=== PATIENT | female | born 1995 | race Caucasian/White ===

== ENCOUNTER 2022-01-25 14:39 | Emergency (ER) | payer OTHER, SELFPAY ==
[2022-01-25 14:53] VITALS: BP 168/101; PULSE 94; RESP 28; O2SAT 100; BMI 24.7
--- NOTE | 2022-01-25 15:11 | ED_ITS ---
HPI - Nausea/Vomiting/Diarrhea <NURYS Banks - Last Filed: 01/25/22 16:44> General Chief complaint: Nausea/Vomiting/Diarrhea Stated complaint: dehydrated, throwing up, not eaten in 24 hrs. Time Seen by Provider: 01/25/22 15:11 Source: patient Mode of arrival: Ambulatory History of Present Illness HPI Narrative: 27-year-old female without any significant medical history presents to the emergency department with nausea and vomiting since last night. Patient states that she drinks 5 shots on an empty stomach, proceeded to drink alcohol last night and has a terrible hangover today. She says that she has been throwing up everything over the last 24 hours and has not been able to keep anything down. She states that she feels ?shaky ?, denies dizziness, weakness, shortness of breath, or chest pain. She states that she is anxious because she feels so poorly and did not know if the shaking was dangerous. She denies any possibility of . Denies any abdominal pain, back pain, blood in her stool or her emesis. Related Data Previous Rx's Medication Instructions Recorded omeprazole magnesium 10 mg oral 10 mg PO DAILY #30 ea 01/25/22 suspension,delayed release (Prilosec) ondansetron 4 mg disintegrating 4 mg PO Q8HR PRN 5 Days tab 01/25/22 tablet ondansetron HCl 4 mg tablet 4 mg PO Q8HR PRN #10 tab 01/25/22 Allergies Allergy/AdvReac Type Severity Reaction Status Date / Time No Known Drug Allergies Allergy Verified 01/25/22 15:05 Review of Systems <NURYS Banks - Last Filed: 01/25/22 16:44> Review of Systems Narrative: General: denies fever, chills, malaise, sweats, fatigue Head/Neck: denies headache, neck pain, dizziness Eyes: denies visual changes, eye pain Cardio: denies chest pain, palpitations, edema Respiratory: denies dyspnea, cough, orthopnea GI: denies abdominal pain, endorses 24 hours of nausea and vomiting : denies dysuria, hematuria, urinary retention, frequency or incontinence MSK: denies joint pain, muscle weakness Skin: denies rash, itching, skin lesions or other Neuro: denies numbness, tingling Patient History <NURYS Banks - Last Filed: 01/25/22 16:44> Social History Smoking Status: Former smoker Smoking Status: Former smoker alcohol intake frequency: a few times a week Substance Use Type: marijuana Exam <NURYS Banks - Last Filed: 01/25/22 16:44> Narrative Exam Narrative: Independently reviewed vitals signs and nursing notes. General: cooperative, comfortable, in no acute distress, well developed and well groomed Head: atraumatic, symmetrical facial expressions Neck: supple, atraumatic, without lymphadenopathy. Eyes: pupils equal round and reactive, EOMI, conjunctiva normal Nose: nares patent, no rhinorrhea Mouth/Throat: moist mucus membranes Cardiovascular: regular rate and rhythm, no peripheral edema, warm extremities Respiratory: normal effort, able to speak in complete sentences, no audible wheezing, stridor, or rales. No retractions or tachypnea. GI: abdomen soft, nontender to palpation, nondistended, no masses, no exquisite tenderness with exam, without guarding or rebound. MSK: moves all extremities, ambulatory w/steady gait, neurovascularly intact, no weakness Skin: brisk capillary refill, no rash, no erythema, mild pallor Neuro: normal speech and cognition, A&O x3, normal tone Psych: mental status is grossly normal, congruent mood, normal affect, pleasant and cooperative Initial Vital Signs Initial Vital Signs: Vital Signs Pulse Rate 94 H 01/25/22 14:53 Respiratory Rate 28 H 01/25/22 14:53 Blood Pressure 168/101 H 01/25/22 14:53 Pulse Oximetry 100 01/25/22 14:53 <Mathieu Prather DO - Last Filed: 01/26/22 09:25> Initial Vital Signs Initial Vital Signs: Vital Signs Pulse Rate 94 H 01/25/22 14:53 Respiratory Rate 28 H 01/25/22 14:53 Blood Pressure 168/101 H 01/25/22 14:53 Pulse Oximetry 100 01/25/22 14:53 Course <NURYS Banks - Last Filed: 01/25/22 16:44> Orders Ordered: Discontinued Medications Sodium Chloride (Normal Saline 0.9%) 1,000 mls @ 1,000 mls/hr IV BOLUS ONE Stop: 01/25/22 16:12 Last Infusion: 01/25/22 16:47 Dose: 0 mls/hr Documented by: Admin: 01/25/22 15:41 Dose: 1,000 mls/hr Documented by: ADALID Ondansetron HCl (Ondansetron 4 Mg Odt) 4 mg SL NOW ONE Stop: 01/25/22 15:12 Last Admin: 01/25/22 15:49 Dose: Not Given Documented by: ADALID Ondansetron HCl (Ondansetron 4 Mg/2 Ml Inj) 4 mg IV NOW ONE Stop: 01/25/22 15:26 Last Admin: 01/25/22 15:41 Dose: 4 mg Documented by: ADALID Pantoprazole Sodium (Pantoprazole 40 Mg Vial) 20 mg IV NOW ONE Stop: 01/25/22 16:33 Last Admin: 01/25/22 16:52 Dose: Not Given Documented by: ADALID Promethazine HCl (Promethazine 25 Mg Tablet) 12.5 mg PO NOW ONE Stop: 01/25/22 16:21 Last Admin: 01/25/22 16:52 Dose: Not Given Documented by: ADALID Vital Signs Vital signs: Vital Signs - 8 hr 01/25/22 14:53 Pulse Rate 94 H Respiratory Rate 28 H Blood Pressure 168/101 H Pulse Oximetry 100 <Mathieu Prather DO - Last Filed: 01/26/22 09:25> Orders Ordered: Discontinued Medications Sodium Chloride (Normal Saline 0.9%) 1,000 mls @ 1,000 mls/hr IV BOLUS ONE Stop: 01/25/22 16:12 Last Infusion: 01/25/22 16:47 Dose: 0 mls/hr Documented by: Admin: 01/25/22 15:41 Dose: 1,000 mls/hr Documented by: ADALID Ondansetron HCl (Ondansetron 4 Mg Odt) 4 mg SL NOW ONE Stop: 01/25/22 15:12 Last Admin: 01/25/22 15:49 Dose: Not Given Documented by: ADALID Ondansetron HCl (Ondansetron 4 Mg/2 Ml Inj) 4 mg IV NOW ONE Stop: 01/25/22 15:26 Last Admin: 01/25/22 15:41 Dose: 4 mg Documented by: ADALID Pantoprazole Sodium (Pantoprazole 40 Mg Vial) 20 mg IV NOW ONE Stop: 01/25/22 16:33 Last Admin: 01/25/22 16:52 Dose: Not Given Documented by: ADALID Promethazine HCl (Promethazine 25 Mg Tablet) 12.5 mg PO NOW ONE Stop: 01/25/22 16:21 Last Admin: 01/25/22 16:52 Dose: Not Given Documented by: ADALID Vital Signs Vital signs: Vital Signs - 8 hr 01/25/22 14:53 Pulse Rate 94 H Respiratory Rate 28 H Blood Pressure 168/101 H Pulse Oximetry 100 MDM - Nausea/Vomiting/Diarrhea <NURYS Banks - Last Filed: 01/25/22 16:44> Lab Data Result diagrams: 01/25/22 15:17 01/25/22 15:17 Labs: Lab Results 01/25/22 01/25/22 01/25/22 Range/Units 15:17 15:17 15:17 WBC 14.0 H (4.5-11.0) X10^3/uL RBC 4.95 (4.0-5.2) X10^6/uL Hgb 15.4 (12.0-16.0) g/dL Hct 44.1 (36-46) % MCV 89.1 (80-100) fL MCH 31.2 (26-34) PG MCHC 35.1 (30-36) % RDW 13.5 (11.6-14.8) % Plt Count 368 (150-400) X10^3/uL Neut % (Auto) 79.2 H (50-75) % Lymph % (Auto) 15.2 L (25-40) % [place] % (Auto) 5.3 (3-14) % Eos % (Auto) 0.1 L (2-4) % Baso % (Auto) 0.2 (0-2) % Neut # (Auto) 01066 H (3870-2178) /uL Lymph # (Auto) 2100 (6176-9991) /uL [place] # (Auto) 700 (0-900) /uL Eos # (Auto) 0 (0-450) /uL Baso # (Auto) 0 (0-100) /uL Sodium 141 (137-145) mmol/L Potassium 3.3 L (3.4-5.1) mmol/L Chloride 103 (98-107) mmol/L Carbon Dioxide 21 L (22-32) mmol/L BUN 8 (7-17) mg/dL Creatinine 0.69 (0.52-1.04) mg/dL Estimated GFR > 60.0 (>60) mL/min BUN/Creatinine Ratio 11.6 (6-22) Glucose 122 H (70-100) mg/dL Calcium 10.1 (8.4-10.2) mg/dL Total Bilirubin 1.3 (0.2-1.3) mg/dL AST 43 H (14-36) IU/L ALT 21 (<35) IU/L Alkaline Phosphatase 73 (38-126) U/L Total Protein 9.0 H (6.3-8.2) g/dL Albumin 5.4 H (3.5-5.0) g/dL Globulin 3.6 (1.7-4.1) g/dL Albumin/Globulin Ratio 1.5 (1.0-2.8) Lipase 81 (23-300) U/L HCG, Quant < 2.4 mIU/mL MDM Narrative Medical decision making narrative: 27-year-old female presents to the emergency department with nausea and vomiting since yesterday after drinking alcohol on an empty stomach. Patient states that she had at least 5 shots and then proceeded to drink the rest of the evening. She has been vomiting since yesterday, states unable to keep anything down. She came to the emergency department for tremors and feeling weak. She takes Adderall and Seroquel at baseline. Lab work shows a mild leukocytosis likely related to vomiting and dehydration of 14, has a left shift, potassium is low at 3.3, AST mildly elevated at 43 without prior to compare to, lipase is 81. Cara ent was given 1 L of normal saline, Zofran IV, tolerated this well. She was able to stop vomiting, feels much better. Encouraged to avoid alcohol, eat healthy fresh foods and try to take in food with potassium in them over the next few days. Recommend close follow-up with primary care provider, return to the emergency department for any new or worsening symptoms. HCG quant was negative . Patient is given a prescription of Zofran, she was given p.o. friend again in addition to her Zofran in the emergency department, tolerated ice chips afterward without vomiting. Patient is appropriate and amenable to discharge home. Vital signs are stable on repeat examination is unremarkable. Patient has been informed of results. Patient has been given strict return to ER precautions for any new or worsening symptoms. Patient understands to follow up closely with outpatient providers as instructed. Patient understands plan and agrees to discharge home. All questions and concerns answered at this time. <Mathieu Prather DO - Last Filed: 01/26/22 09:25> Lab Data Labs: Lab Results 01/25/22 01/25/22 01/25/22 Range/Units 15:17 15:17 15:17 WBC 14.0 H (4.5-11.0) X10^3/uL RBC 4.95 (4.0-5.2) X10^6/uL Hgb 15.4 (12.0-16.0) g/dL Hct 44.1 (36-46) % MCV 89.1 (80-100) fL MCH 31.2 (26-34) PG MCHC 35.1 (30-36) % RDW 13.5 (11.6-14.8) % Plt Count 368 (150-400) X10^3/uL Neut % (Auto) 79.2 H (50-75) % Lymph % (Auto) 15.2 L (25-40) % [place] % (Auto) 5.3 (3-14) % Eos % (Auto) 0.1 L (2-4) % Baso % (Auto) 0.2 (0-2) % Neut # (Auto) 59142 H (2775-2479) /uL Lymph # (Auto) 2100 (8886-8486) /uL [place] # (Auto) 700 (0-900) /uL Eos # (Auto) 0 (0-450) /uL Baso # (Auto) 0 (0-100) /uL Sodium 141 (137-145) mmol/L Potassium 3.3 L (3.4-5.1) mmol/L Chloride 103 (98-107) mmol/L Carbon Dioxide 21 L (22-32) mmol/L BUN 8 (7-17) mg/dL Creatinine 0.69 (0.52-1.04) mg/dL Estimated GFR > 60.0 (>60) mL/min BUN/Creatinine Ratio 11.6 (6-22) Glucose 122 H (70-100) mg/dL Calcium 10.1 (8.4-10.2) mg/dL Total Bilirubin 1.3 (0.2-1.3) mg/dL AST 43 H (14-36) IU/L ALT 21 (<35) IU/L Alkaline Phosphatase 73 (38-126) U/L Total Protein 9.0 H (6.3-8.2) g/dL Albumin 5.4 H (3.5-5.0) g/dL Globulin 3.6 (1.7-4.1) g/dL Albumin/Globulin Ratio 1.5 (1.0-2.8) Lipase 81 (23-300) U/L HCG, Quant < 2.4 mIU/mL Discharge Plan Departure Patient Disposition: Home Clinical Impression: Hypokalemia due to excessive gastrointestinal loss of potassium, Acute dehydration Hangover Qualifiers: Complication of substance-induced condition: uncomplicated Qualified Code(s): F10.120 - Alcohol abuse with intoxication, uncomplicated Vomiting Qualifiers: Vomiting type: unspecified Nausea presence: with nausea Qualified Code(s): R11.2 - Nausea with vomiting, unspecified Instructions: DI for Vomiting -- Adult Activity Restrictions/Additional Instructions: *You have been diagnosed with nausea and vomiting related to your. Please do not drink the much on an empty stomach again. Do not take any ibuprofen for the next few days, you likely have gastritis which is inflammation of your stomach lining. Please take Prilosec for the next few days in the morning on an empty stomach. Try to eat a bland diet, nothing acidic or spicy, limit your caffeine and coffee intake, if it is painful probably should avoid it. Can take Tylenol for pain, use Zofran for any vomiting, have sent your prescriptions to [facility]. Please follow-up with her primary care provider if you have any other concerns. Your lab work showed that your potassium level was slightly low today, no need to take any potassium pills since is probably low from your frequent vomiting. Please try to eat fresh healthy foods over the next few days to restore your potassium level. Thank you for trusting us with your care, Maalox or Tums is okay to take for discomfort in your epigastric region. *What to do: *Please continue to take your regular medications as directed. [x ] New medication prescriptions sent to your pharmacy: [[facility] ] [ ] New medication written as a paper prescription [ ] No new medications given *Please follow up with your primary care provider in 2-3 days, call for an appointment. Let them know you were seen in the Emergency Department and that we asked that you be seen for follow-up. We will electronically transmit a record of today's note if your PCP is in our system *If you do not have a primary care provider please contact [phone] to establish care with one of the [facility] primary care providers. *Return to Emergency Department if you should have any new, worsening or concerning symptoms, such as [fever greater than 101F, chills, worsening pain, persistent vomiting or other bothersome symptoms] Prescriptions: New ondansetron 4 mg tablet,disintegrating 4 mg PO Q8HR PRN (Reason: nausea and vomiting) 5 Days 0RF ondansetron HCl 4 mg tablet 4 mg PO Q8HR PRN (Reason: nausea and vomiting) Qty: 10 0RF Prilosec 10 mg susp,delayed release for recon 10 mg PO DAILY Qty: 30 0RF Referrals: Cristino Portillo MD [Primary Care Provider] - <Mathieu Prather DO - Last Filed: 01/26/22 09:25> [facility]: I was immediately available in the department for consultation. This documentation has been reviewed and I agree with assessment and plan. Supervised by Mathieu Prather DO
[2022-01-25 15:28] LABS: Add Manual Diff / Slide Review NO; Basophils Absolute Auto 0 /uL (0-100); Basophils Percent Auto 0.2 % (0-2); Eosinophils Absolute Auto 0 /uL (0-450); Eosinophils Percent Auto 0.1 % (2-4); Hematocrit 44.1 % (36-46); Hemoglobin 15.4 g/dL (12.0-16.0); Lymphocytes Absolute Auto 2100 /uL (1100-4500); Lymphocytes Percent Auto 15.2 % (25-40); Mean Corpuscular HGB Conc 35.1 % (30-36); Mean Corpuscular Hemoglobin 31.2 PG (26-34); Mean Corpuscular Volume 89.1 fL (80-100); Monocytes Absolute Auto 700 /uL (0-900); Monocytes Percent Auto 5.3 % (3-14); Neutrophils Absolute Auto 11100 /uL (1500-7000); Neutrophils Percent Auto 79.2 % (50-75); Platelet Count 368 X10^3/uL (150-400); Red Blood Cell Count 4.95 X10^6/uL (4.0-5.2); Red Cell Distribution Width 13.5 % (11.6-14.8)
[2022-01-25 15:38] LABS: Alanine Aminotransferase 21 IU/L (<35); Albumin 5.4 g/dL (3.5-5.0); Albumin Globulin Ratio 1.5 (1.0-2.8); Alkaline Phosphatase 73 U/L (38-126); Aspartate Aminotransferase 43 IU/L (14-36); BUN Creatinine Ratio 11.6 (6-22); Bilirubin Total 1.3 mg/dL (0.2-1.3); Blood Urea Nitrogen 8 mg/dL (7-17); Calcium 10.1 mg/dL (8.4-10.2); Carbon Dioxide 21 mmol/L (22-32); Chloride 103 mmol/L (98-107); Estimated Glomerular Filt Rate > 60.0 mL/min (>60); Globulin 3.6 g/dL (1.7-4.1); Glucose 122 mg/dL (70-100); HEMOLYSIS < 15 (0-50); Lipase 81 U/L (23-300); Potassium 3.3 mmol/L (3.4-5.1); Sodium 141 mmol/L (137-145)
[2022-01-25] MEDS: ONDANSETRON 4 MG/2 ML INJ IV (15:41)
[2022-01-25] MEDS: SODIUM CHLORIDE 0.9% 1,000 ML 1000 ML IV (15:41)
[2022-01-25 16:57] LABS: HCG Quantitative /Beta subunit < 2.4 mIU/mL
[2022-01-25 17:00] VITALS: BP 118/75; PULSE 85; RESP 16; O2SAT 99
== END 2022-01-25 16:52 | disposition home or self-care (01) ==
PROVIDERS: Emergency Provider Nurse Practitioner Critical Care Medicine; PCP Family Medicine
DX: F10.129 Alcohol abuse with intoxication, unspecified (principal); R11.2 Nausea with vomiting, unspecified; E86.0 Dehydration; E87.6 Hypokalemia
CPT/HCPCS: 36415; 80053; 83690; 84702; 85025; 96361; 96374; 99284; J2405

== ENCOUNTER → 2023-09-17 15:52 | Outpatient (CLI) | payer OTHER, SELFPAY ==
[2023-09-17 16:32] LABS: Hematocrit 41.1 % (36-46); Mean Corpuscular Hemoglobin 31.4 PG (26-34); Mean Corpuscular Volume 92.3 fL (80-100); Platelet Count 255 X10^3/uL (150-400); Red Blood Cell Count 4.45 X10^6/uL (4.0-5.2); Red Cell Distribution Width 13.2 % (11.6-14.8); White Blood Cell Count 6.8 X10^3/uL (4.5-11.0)
[2023-09-17 16:49] LABS: Alanine Aminotransferase 22 IU/L (<35); Albumin 4.5 g/dL (3.5-5.0); Albumin Globulin Ratio 1.6 (1.0-2.8); Alkaline Phosphatase 43 U/L (38-126); Aspartate Aminotransferase 28 IU/L (14-36); BUN Creatinine Ratio 24.6 (6-22); Bilirubin Total 1.1 mg/dL (0.2-1.3); Blood Urea Nitrogen 14 mg/dL (7-17); Calcium 9.5 mg/dL (8.4-10.2); Carbon Dioxide 26 mmol/L (22-32); Chloride 101 mmol/L (98-107); Estimated Glomerular Filt Rate > 60 mL/min (>60); Globulin 2.9 g/dL (1.7-4.1); Glucose 147 mg/dL (70-100); HEMOLYSIS < 15 (0-50); Lactate Dehydrogenase 132 U/L (120-246); Sodium 134 mmol/L (137-145); Total Protein 7.4 g/dL (6.3-8.2)
== END ==
PROVIDERS: PCP Family Medicine; Referring Provider Family Medicine; Visit Provider Family Medicine
DX: R59.1 Generalized enlarged lymph nodes (principal); R61 Generalized hyperhidrosis
CPT/HCPCS: 36415; 80053; 83615; 85027

== ENCOUNTER → 2023-10-29 12:28 | Outpatient (CLI) | payer OTHER, SELFPAY ==
--- NOTE | 2023-10-29 12:31 | DI.US.S_ITS ---
PROCEDURE: US SOFT TISSUE HEAD AND NECK INDICATIONS: right side, level of C4 1cmx1.5cm mass TECHNIQUE: Real-time scanning was performed of the neck region of interest, with image documentation. COMPARISON: None. FINDINGS: There are multiple normal sized cervical lymph nodes visualized in the region palpated by the patient. These nodes demonstrate normal size and normal fatty dilan. No cervical adenopathy appreciated. IMPRESSION: No suspicious mass lesion or cervical adenopathy where palpated by the patient. Dictated by: Adela Muller M.D. on 10/29/2023 at 13:53 Approved by: Adela Muller M.D. on 10/29/2023 at 13:54
== END ==
LOC: US 12:30
PROVIDERS: PCP Family Medicine; Referring Provider Family Medicine; Visit Provider Family Medicine
DX: R59.1 Generalized enlarged lymph nodes (principal)
CPT/HCPCS: 76536

== ENCOUNTER → 2024-07-04 11:04 | Outpatient (CLI) | payer OTHER, SELFPAY ==
--- NOTE | 2024-07-04 11:06 | DI.US.S_ITS ---
PROCEDURE: US SOFT TISSUE HEAD AND NECK INDICATIONS: RT POSTERIOR CERVICAL ENLARGED LYMPH NODE x6m TECHNIQUE: Real-time scanning was performed of the neck region of interest, with image documentation. COMPARISON: [facility], , US SOFT TISSUE HEAD AND NECK, 10/29/2023, 12:42. FINDINGS: In the right posterior cervical lymph node chain, there is a 1.0 x 0.3 x 0.8 cm lymph node with preserved fatty hilum. No evidence of extranodal extension. IMPRESSION: Normal lymph node with benign morphology in the right posterior cervical lymph node chain. Dictated by: Lincoln Solomon M.D. on 07/04/2024 at 15:17 Approved by: Lincoln Solomon M.D. on 07/04/2024 at 15:19
== END ==
PROVIDERS: PCP Family Medicine; Referring Provider Nurse Practitioner Family; Visit Provider Nurse Practitioner Family
DX: R59.0 Localized enlarged lymph nodes (principal)
CPT/HCPCS: 76536

== ENCOUNTER → 2025-01-01 09:35 | Outpatient (CLI) | payer OTHER, SELFPAY ==
[2025-01-02 13:09] LABS: Candida species Negative (Negative); Gardnerella vaginalis Negative (Negative); Trichomoas vaginalis Negative (Negative)
== END ==
PROVIDERS: PCP Family Medicine; Visit Provider Student in an Organized Health Care Education/Training Program
DX: N89.8 Other specified noninflammatory disorders of vagina (principal)
CPT/HCPCS: 87480; 87510; 87660

== ENCOUNTER → 2025-01-16 10:20 | Outpatient (CLI) | payer OTHER, SELFPAY ==
[2025-01-16 14:37] LABS: Urine Chlamydia NOT DETECTED; Urine N gonorrhoeae NOT DETECTED
== END ==
PROVIDERS: PCP Family Medicine; Visit Provider Student in an Organized Health Care Education/Training Program
DX: Z11.3 Encounter for screening for infections with a predominantly sexual mode of transmission (principal)
CPT/HCPCS: 87491; 87591

== ENCOUNTER → 2025-01-30 13:44 | Outpatient (CLI) | payer OTHER, SELFPAY ==
[2025-01-30 14:13] LABS: Add Manual Diff / Slide Review NO; Basophils Absolute Auto 0 /uL (0-100); Basophils Percent Auto 0.3 % (0-2); Eosinophils Absolute Auto 200 /uL (0-450); Eosinophils Percent Auto 2.1 % (2-4); Hematocrit 40.2 % (36-46); Hemoglobin 13.8 g/dL (12.0-16.0); Lymphocytes Absolute Auto 2500 /uL (1100-4500); Lymphocytes Percent Auto 20.5 % (25-40); Mean Corpuscular HGB Conc 34.2 % (30-36); Mean Corpuscular Hemoglobin 31.2 PG (26-34); Mean Corpuscular Volume 91.1 fL (80-100); Monocytes Absolute Auto 600 /uL (0-900); Monocytes Percent Auto 4.8 % (3-14); Neutrophils Absolute Auto 8700 /uL (1500-7000); Neutrophils Percent Auto 72.3 % (50-75); Platelet Count 313 X10^3/uL (150-400); Red Blood Cell Count 4.41 X10^6/uL (4.0-5.2); Red Cell Distribution Width 13.8 % (11.6-14.8)
[2025-01-30 16:04] LABS: HIV 1 & 2 Ab/Ag 4th Gen Combo NEGATIVE (NEGATIVE); Hep C Virus Ab w/Reflex Quant NEGATIVE s/c (NEGATIVE); Hepatitis B Surface Antigen NEGATIVE s/c (NEGATIVE); Rubella Antibody IgG 4.5 IU/mL (>15)
[2025-02-01 05:41] LABS: RPR Screen Non Reactive (Non Reactive)
[2025-02-01 09:39] LABS: Varicella IgG Antibody Non Reactive (Non Reactive)
== END ==
PROVIDERS: PCP Family Medicine; Referring Provider Student in an Organized Health Care Education/Training Program; Visit Provider Student in an Organized Health Care Education/Training Program
DX: Z34.00 Encounter for supervision of normal first pregnancy, unspecified trimester (principal)
CPT/HCPCS: 36415; 80055; 86787; 86803; 86850; 86900; 86901; 87077; 87086; 87186; 87389

== ENCOUNTER 2025-02-05 22:27 | Emergency (ER) | payer OTHER, SELFPAY ==
[2025-02-05 22:32] VITALS: BP 123/81; PULSE 94; RESP 16; TEMP 36.6; O2SAT 98; BMI 26.5
[2025-02-05] MEDS: SODIUM CHLORIDE 0.9% 1,000 ML 1000 ML IV (23:00)
--- NOTE | 2025-02-05 23:50 | ED_ITS ---
HPI - Headache General Chief Complaint: Headache Stated Complaint: 11 weeks gestation migraine N/V Time Seen by Provider: 02/05/25 23:50 Mode of arrival: Ambulatory History of Present Illness HPI Narrative: Patient is a 30-year-old female history of migraines, currently 11 weeks , presents to the emergency department from home for evaluation of headache. She states that she does have a history of migraines, states this is similar to her history of, however she states that she did not take any medications that she normally does for this given the fact that she is and she was unsure of what is safe to take. She denies any trauma or falls. Denies any other symptoms such as visual disturbances chest pain shortness breath fever chills nausea vomiting abdominal pain or any other GI/ symptoms time. Patient denies any vaginal bleeding cramping. She states that she was traveling recently and felt extremely dehydrated and believes this was the trigger of her symptoms. Related Data Home Medications Medication Instructions Recorded Confirmed dextroamphetamine-amphetamine 10 10 mg PO DAILY 01/28/24 01/16/25 mg tablet (Adderall) zolpidem 5 mg tablet 10 mg PO BEDTIME PRN 11/10/24 01/16/25 magnesium glycinate 100 mg (as 200 mg PO DAILY 01/08/25 01/16/25 glycinate) tablet vitamin-ferrous sulfate tab PO 01/08/25 01/16/25 27 mg iron-folic acid 0.8 mg tablet Previous Rx's Medication Instructions Recorded ondansetron HCl 4 mg tablet 4 mg PO DAILY #30 tabs 01/10/25 Allergies Allergy/AdvReac Type Severity Reaction Status Date / Time No Known Drug Allergies Allergy Verified 01/16/25 09:29 Review of Systems Review of Systems Narrative: General: Denies fever, chills, weight loss HEENT: Positive headache, denies eye drainage, eye irritation, head trauma, sore throat, voice change Cardiovascular: Denies any chest pain, palpitations, tachycardia Respiratory: Denies any shortness of breath, cough, wheeze, stridor GI/: Denies any abdominal pain, nausea, vomiting, diarrhea, bright red blood per rectum, melanotic stools, urinary frequency, urinary retention, dysuria, hematuria MSK: Denies any joint pain, muscle pains, swelling Skin: Denies any rashes, lesions, discoloration Neuro: Denies any headache, lightheadedness, dizziness, fainting, weakness Psych: Denies SI/HI Patient History Medical History (Updated 02/06/25 @ 00:13 by Kamar Trejo DO) Gastritis Lymphadenopathy of head and neck Occipital headache Depression Surgical History (Updated 01/08/25 @ 12:07 by Tari Shepherd RN) [place] teeth extracted Family History (Updated 01/08/25 @ 12:12 by Tari Shepherd RN) Mother Precancerous skin lesion Insomnia ADHD Grandmother Stroke Colon cancer Uncle Metastatic melanoma Grandmother Alcoholism Mental health disorder Uncle Alcoholism ADHD Hyperlipidemia Sister Precancerous skin lesion Hyperlipidemia Brother Hypertension Social History marital status: number of children: 0 household members: spouse lives independently: Yes caregiver/support person: No housing: [facility] pets and animals: Yes (small dogs) education level: master's degree (healthcare administration) 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) current occupational exposures/hazards: No special jolynn needs: No travel history: recent ([place]) seatbelt use: always helmet use: Yes water heater temp set < 120 deg: Yes working smoke detector in home: Yes fire extinguisher in home: Yes carbon monox detector in home: Yes firearms in home: Yes firearms unloaded and locked: Yes do you feel safe at home: Yes Smoking Status: Never smoker second hand exposure: No alcohol intake: former (~3-5/week when not ) substance use type: marijuana (not planning to use while /) during the past year weight has: other (always has ~10-20 lb range fluctuation) well-balanced diet: rarely or never daily servings fruits/ve-1 caffeine: Yes (single cup coffee in AM) Type(s) of exercise: none Smoking Status: Never smoker alcohol intake frequency: a few times a week Exam Narrative Exam Narrative: General: Cooperative, well-developed, not in acute distress HEENT: Normocephalic, atraumatic, PERRLA, normal sclera, eyelids normal Neck: Active full range of motion, atraumatic Chest: Normal to inspection, negative crepitus, no overlying erythema ecchymosis Respiratory: Normal respiratory effort, not in acute respiratory distress, clear to auscultation bilaterally negative cough, wheeze, tachypnea, rhonchi, rales Cardiology: Regular rate rhythm negative gallop, murmur, rubs GI/: No tenderness to palpation, soft, non rigid, normal to inspection, exam deferred MSK: Full active range of motion in all 4 extremities, atraumatic, no tenderness to palpation of any bony prominences Skin: No rashes or lesions noted Neuro: NIH of 0, no focal deficits Alert awake oriented x3, moves all 4 extremities spontaneously, cranial nerves intact, able to answer all questions appropriately follows commands appropriately Psych: Cooperative, negative suicidal or homicidal ideations Initial Vital Signs Initial Vital Signs: Vital Signs Temperature 98 F 02/05/25 22:32 Pulse Rate 94 H 02/05/25 22:32 Respiratory Rate 16 02/05/25 22:32 Blood Pressure 123/81 02/05/25 22:32 Pulse Oximetry 98 02/05/25 22:32 Oxygen Delivery Method Room Air 02/05/25 22:32 Course Orders Ordered: Ondansetron HCl (Ondansetron 4 Mg/2 Ml Inj) 4 mg IV NOW PRN PRN Reason: Nausea And Vomiting Ondansetron HCl (Ondansetron 4 Mg Odt) 4 mg SL NOW PRN PRN Reason: Nausea And Vomiting Vital Signs Vital signs: Vital Signs - 8 hr 02/05/25 22:32 Temperature 98 F Pulse Rate 94 H Respiratory Rate 16 Blood Pressure 123/81 Pulse Oximetry 98 Oxygen Delivery Method Room Air MDM - Headache Differential Diagnosis Differential diagnosis: Likely migraine, tension headache and headache MDM Narrative Medical decision making narrative: 30-year-old female with a history of migraine currently 11 weeks presenting to the emergency department from home for evaluation of headache, she states that she was recently traveling felt dehydrated started having a headache typical of her normal migraines, she said she normally takes Advil for this but she did not because she is currently . Patient states that she is not h aving any other symptoms at such as visual disturbances chest pain shortness breath pelvic cramping vaginal bleeding or abnormal discharge. She states that she had complete resolution of her headache after administration of 1 L normal saline, she does not want any additional medications that were ordered such as Decadron Reglan and Benadryl. She states that she just wants to go home and sleep. She does not want any blood work at this time. Patient was given strict return precautions she verbalized understanding of this and agrees to being discharged home with outpatient follow up Discharge Plan Departure Patient Disposition: Home Clinical Impression: Headache Instructions: DI for Headache Activity Restrictions/Additional Instructions: You can take Tylenol for your headaches Please follow up with the primary care doctor and your OBGYN in outpatient setting Please read the discharge instructions sheet carefully and bring all papers to all doctor follow-up visits, as it may contain information that your doctor may want to see. Disease processes change and evolve, if your symptoms worsen or if you develop any new symptoms that are concerning to you please return for evaluation. Your evaluation today does not show any evidence of any life- threatening/serious illnesses requiring admission to the hospital or surgery. Please follow-up with your doctor for re-evaluation in approximately 1 day. Seek immediate medical attention for any worrisome symptoms. *If you do not have a primary care provider please contact the [facility] Resource line at [phone]. They will ask some questions about your medical history and help get you set up with a doctor in the community. Prescriptions: No Action ondansetron HCl 4 mg tablet 4 mg PO DAILY Qty: 30 2RF dextroamphetamine-amphetamine [Adderall] 10 mg tablet 10 mg PO DAILY zolpidem 5 mg tablet 10 mg PO BEDTIME PRN Patient Comments: [NO ORIGINAL SIG] vit-ferrous sulfat-FA 27 mg iron- 0.8 mg tablet PO magnesium glycinate 100 mg tablet 200 mg PO DAILY Referrals: Dipika Ruiz DO [Primary Care Provider] - Stand Alone Forms: Patient Portal/API/Survey
[2025-02-06 00:15] VITALS: BP 106/59; PULSE 79; RESP 19; O2SAT 98
[2025-02-06 00:44] LABS: Add Manual Diff / Slide Review NO; Basophils Absolute Auto 200 /uL (0-100); Basophils Percent Auto 1.9 % (0-2); Eosinophils Absolute Auto 300 /uL (0-450); Eosinophils Percent Auto 2.2 % (2-4); Hematocrit 38.9 % (36-46); Hemoglobin 13.4 g/dL (12.0-16.0); Lymphocytes Absolute Auto 2000 /uL (1100-4500); Lymphocytes Percent Auto 17.6 % (25-40); Mean Corpuscular HGB Conc 34.5 % (30-36); Mean Corpuscular Hemoglobin 31.3 PG (26-34); Mean Corpuscular Volume 90.7 fL (80-100); Monocytes Absolute Auto 400 /uL (0-900); Monocytes Percent Auto 3.4 % (3-14); Neutrophils Absolute Auto 8400 /uL (1500-7000); Neutrophils Percent Auto 74.9 % (50-75); Platelet Count 279 X10^3/uL (150-400); Red Blood Cell Count 4.29 X10^6/uL (4.0-5.2); White Blood Cell Count 11.2 X10^3/uL (4.5-11.0)
[2025-02-06 00:48] LABS: BUN Creatinine Ratio 19.6 (6-22); Blood Urea Nitrogen 10 mg/dL (7-17); Calcium 9.3 mg/dL (8.4-10.2); Carbon Dioxide 22 mmol/L (22-32); Chloride 103 mmol/L (98-107); Estimated Glomerular Filt Rate > 60 mL/min (>60); Glucose 92 mg/dL (70-100); HEMOLYSIS < 15 (0-50); Potassium 3.7 mmol/L (3.4-5.1); Sodium 133 mmol/L (137-145)
[2025-02-06 01:30] LABS: HCG Quantitative /Beta subunit 97405 mIU/mL
== END 2025-02-06 00:21 | disposition home or self-care (01) ==
PROVIDERS: Emergency Provider Student in an Organized Health Care Education/Training Program; PCP Family Medicine
DX: O26.891 Other specified pregnancy related conditions, first trimester (principal); R51.9 Headache, unspecified; Z3A.11 11 weeks gestation of pregnancy
CPT/HCPCS: 36415; 80048; 84702; 85025; 96360; 99284

== ENCOUNTER → 2025-02-09 15:01 | Outpatient (CLI) | payer OTHER, SELFPAY ==
[2025-02-09 16:17] LABS: Natera Collection Specimen Collected
== END ==
PROVIDERS: PCP Family Medicine; Referring Provider Student in an Organized Health Care Education/Training Program; Visit Provider Student in an Organized Health Care Education/Training Program
DX: Z34.81 Encounter for supervision of other normal pregnancy, first trimester (principal); Z3A.10 10 weeks gestation of pregnancy
CPT/HCPCS: 36415

== ENCOUNTER 2025-08-18 21:28 | Emergency (ER) | payer OTHER, SELFPAY ==
[2025-08-18] VITALS (7 sets, daily range): BP systolic 137–161; BP diastolic 91–98; PULSE 81–92; RESP 16; TEMP 36.7; O2SAT 95–98; BMI 30.6
--- NOTE | 2025-08-18 21:45 | PC.NURSE ---
Confirmed labatolol 200mg po BID from IDALMIS Shultz at [facility] in labor and delivery. Verbal order per Dr. Perez to give pm dose now.
[2025-08-18] MEDS: LABETALOL 100 MG TABLET 200 MG PO (21:59)
--- NOTE | 2025-08-18 22:12 | ED.GENADULT ---
HPI - General Adult General Chief complaint: Hypertension Stated complaint: possible miscarriage Time Seen by Provider: 08/18/25 21:47 Source: patient Mode of arrival: Ambulatory History of Present Illness HPI narrative: 30-year-old primigravida G1 now P1, discharged from [facility] 5:00 p.m. earlier today, develop high blood pressure preeclampsia yesterday she reports, discharged on labetalol, prescription sent to her pharmacy to [facility], however she was discharged too late for the pharmacy to fill this weekend, prescribed labetalol 100 mg by mouth twice daily. Here for evening labetalol dose. Due to pharmacy closure. Denies seizure shaking activity. Denies headache visual changes. Denies right upper quadrant abdominal pain. Related Data Home Medications ?Medication ?Instructions ?Recorded ?Confirmed dextroamphetamine-amphetamine 10 10 mg PO DAILY 01/28/24 01/16/25 mg tablet (Adderall) zolpidem 5 mg tablet 10 mg PO BEDTIME PRN 11/10/24 01/16/25 magnesium glycinate 100 mg (as 200 mg PO DAILY 01/08/25 01/16/25 glycinate) tablet vitamin-ferrous sulfate tab PO 01/08/25 01/16/25 27 mg iron-folic acid 0.8 mg tablet Previous Rx's ?Medication ?Instructions ?Recorded ondansetron HCl 4 mg tablet 4 mg PO DAILY #30 tabs 01/10/25 Allergies Allergy/AdvReac Type Severity Reaction Status Date / Time No Known Drug Allergies Allergy Verified 08/18/25 21:34 Patient History Medical History (Updated 08/18/25 @ 22:17 by Chinedu Perez MD) Gastritis Lymphadenopathy of head and neck Occipital headache Depression Surgical History (Updated 01/08/25 @ 12:07 by Tari Shepherd, IDALMIS) Ransom teeth extracted Family History (Updated 01/08/25 @ 12:12 by Tari Shepherd, IDALMIS) Mother Precancerous skin lesion Insomnia ADHD Grandmother Stroke Colon cancer Uncle Metastatic melanoma Grandmother Alcoholism Mental health disorder Uncle Alcoholism ADHD Hyperlipidemia Sister Precancerous skin lesion Hyperlipidemia Brother Hypertension Social History marital status: number of children: 0 household members: spouse lives independently: Yes caregiver/support person: No housing: condominium pets and animals: Yes (small dogs) education level: master's degree (healthcare administration) 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) current occupational exposures/hazards: No special jolynn needs: No travel history: recent ([place]) seatbelt use: always helmet use: Yes water heater temp set < 120 deg: Yes working smoke detector in home: Yes fire extinguisher in home: Yes carbon monox detector in home: Yes firearms in home: Yes firearms unloaded and locked: Yes do you feel safe at home: Yes Smoking Status: Former smoker second hand exposure: No alcohol intake: former (~3-5/week when not ) substance use type: marijuana (not planning to use while /) during the past year weight has: other (always has ~10-20 lb range fluctuation) well-balanced diet: rarely or never daily servings fruits/ve-1 caffeine: Yes (single cup coffee in AM) Type(s) of exercise: none Smoking Status: Former smoker alcohol intake frequency: a few times a week Exam Narrative Exam Narrative: GENERAL: Well-developed patient, in mild distress. HEAD: Atraumatic. Normocephalic. EYES: Pupils equal round and reactive. Extraocular motions intact. No scleral icterus. No injection or drainage. ENT: Nose without bleeding, purulent drainage. Throat without erythema, tonsillar hypertrophy or exudate. Airway patent. NECK: Trachea midline. Non tender CARDIOVASCULAR: Regular rate and rhythm without murmurs, gallops, or rubs. RESPIRATORY: Clear to auscultation. Breath sounds equal bilaterally. No wheezes, rales, or rhonchi. GASTROINTESTINAL: Abdomen soft, non-tender, nondistended. EXTREMITIES: No edema or joint tenderness. BACK: Nontender without deformity or crepitance. No flank tenderness. NEURO: AOx3. Motor functions grossly nonfocal. SKIN: No rash or erythema of visible areas Initial Vital Signs Initial Vital Signs: Vital Signs Temperature 98.1 F 08/18/25 21:34 Pulse Rate 82 08/18/25 21:34 Respiratory Rate 16 08/18/25 21:34 Blood Pressure 161/98 H 08/18/25 21:34 Pulse Oximetry 97 08/18/25 21:34 Oxygen Delivery Method Room Air 08/18/25 21:34 Course Orders Ordered: Discontinued Medications Labetalol HCl (Labetalol 100 Mg Tablet) 200 mg PO NOW ONE Stop: 08/18/25 21:46 Last Admin: 08/18/25 21:59 Dose: 200 mg Documented By: MARIELY Vital Signs Vital signs: Vital Signs - 8 hr 08/18/25 21:34 08/18/25 21:40 08/18/25 21:41 Temperature 98.1 F Pulse Rate 82 89 Respiratory Rate 16 Blood Pressure 161/98 H 148/91 H Pulse Oximetry 97 97 Oxygen Delivery Method Room Air 08/18/25 21:41 08/18/25 21:45 08/18/25 21:45 Temperature Pulse Rate 89 81 Respiratory Rate Blood Pressure 138/91 H Pulse Oximetry 95 96 Oxygen Delivery Method 08/18/25 21:59 08/18/25 22:00 08/18/25 22:18 Temperature Pulse Rate 92 H 92 H Respiratory Rate Blood Pressure 138/92 H 137/94 H Pulse Oximetry 97 Oxygen Delivery Method 08/18/25 22:18 Temperature Pulse Rate 87 Respiratory Rate 16 Blood Pressure Pulse Oximetry 98 Oxygen Delivery Method Medical Decision Making [facility] Narrative Medical decision making narrative: 30-year-old female primigravida preeclampsia, discharged on labetalol 100 mg twice daily, discharged from [facility] 5:30 p.m., pharmacies were closed to fill her evening dose. Prescription is available to [facility] in the morning. Here for evening dose. Blood pressure 130/92. No signs and symptoms preeclampsia. We offered repeat labs, declined. She would just like her evening dose and to be discharged home in to fill her medications as planned in the morning. Abdomen benign. Minimal lochia rubra. Afebrile, sirs screen negative. Labetalol 100 mg oral dose administered. Has prescription sent to her pharmacy to [facility] tomorrow for further dosing. Follow up with her [facility] outbound sales advisor as planned. Discussed warnings preeclampsia. Shortness home with family. Discharge Plan Departure Patient Disposition: Home Clinical Impression: Pre-eclampsia affecting puerperium Activity Restrictions/Additional Instructions: History of preeclampsia diagnosed period, 1st time delivery viable infant, discharge from [facility] with prescription for labetalol 100 mg by mouth twice daily. However discharge was at 5:00 p.m., and local pharmacies were not open to fill and take evening dose. Here to obtain evening dose. You have prescription for labetalol to fill and start taking tomorrow morning at local pharmacy. No signs and symptoms of preeclampsia, no seizure activity, no headache or visual changes, no right upper quadrant abdominal discomfort. Afebrile at triage. Blood pressure 138/92. We discussed preeclampsia labs, declined for now. Oral dose of labetalol 100 mg given. Fill intake your labetalol course of medications in the morning as planned. Follow up with your [facility] outbound sales advisor as planned. Return earlier to this/nearest emergency department for any change worsening symptoms or any concerns prior. Prescriptions: No Action ondansetron HCl 4 mg tablet 4 mg PO DAILY Qty: 30 2RF dextroamphetamine-amphetamine [Adderall] 10 mg tablet 10 mg PO DAILY zolpidem 5 mg tablet 10 mg PO BEDTIME PRN Patient Comments: [NO ORIGINAL SIG] vit-ferrous sulfat-FA 27 mg iron- 0.8 mg tablet PO magnesium glycinate 100 mg tablet 200 mg PO DAILY Referrals: Dipika Ruiz DO [Primary Care Provider, Family Practice] Stand Alone Forms: Patient Portal/API
== END 2025-08-18 22:25 | disposition home or self-care (01) ==
PROVIDERS: Emergency Provider Emergency Medicine; PCP Family Medicine
DX: O14.95 Unspecified pre-eclampsia, complicating the puerperium (principal)
CPT/HCPCS: 99283